=== PATIENT | male | born 1965 | race Caucasian/White ===

== ENCOUNTER 2023-10-04 10:11 | Day surgery (SDC) | payer BC ==
[2023-09-26 13:27] VITALS: BMI 28.5
[2023-10-04] MEDS ORDERED: LevoFLOXacin D5W 500 mg (100 mL) BAG ONE (11:37)
[2023-10-04] MEDS ORDERED: PROPOFOL 40 ML ONE (14:06)
[2023-10-04] MEDS ORDERED: fentaNYL 50 mcg/mL 1 mL Vial ONE (14:15)
[2023-10-04] MEDS ORDERED: Ondansetron PF 4 MG/2 ML Vial ONE (14:17)
[2023-10-04] MEDS ORDERED: Oxybutynin 5 MG TAB ONE (15:40)
[2023-10-04] MEDS ORDERED: Phenazopyridine HCl 100 MG TAB ONE (15:41)
== END 2023-10-04 18:11 | disposition home or self-care (01) ==
LOC: SDC 10:11
PROVIDERS: ATTEND Urology
PROC: 0VT08ZZ Resection of Prostate, Via Natural or Artificial Opening Endoscopic (ICD-10-PCS; principal; 2023-10-04)
DX: N40.1 Benign prostatic hyperplasia with lower urinary tract symptoms (principal); I10 Essential (primary) hypertension; Z88.0 Allergy status to penicillin
CPT/HCPCS: 88305; J1956; J2405; J2704; J3010